=== PATIENT | female | born 1940 | race Caucasian/White ===

== ENCOUNTER 2024-10-26 17:19 | Emergency (ER) | payer MEDICARE, SELFPAY ==
[2024-10-26 17:21] VITALS: PULSE 94; RESP 16; O2SAT 98; BMI 22.4
[2024-10-26 17:22] VITALS: BP 105/64; PULSE 91; RESP 16; TEMP 37; O2SAT 98
--- NOTE | 2024-10-26 17:44 | XR_ITS ---
Examination: CT brain head without contrast. 2-D sagittal coronal reconstructions Date and time of exam:October 26, 2024 1808 hours INDICATIONS: Onset headache altered mental status today CTDI: vol (mGy):47.5 DLP: (mGycm):984 Technique: Multiple CT axial sections of the brain have been obtained, 5 mm slice thickness. Contrast has not been administered. 2-D sagittal, coronal reconstructions have been obtained Low dose protocols were performed. One or more of the following dose reduction techniques were used; automated exposure control, adjustment of the mA and/or KV according to patient size, use of iterative reconstruction technique. Findings: No significant ventricular enlargement. Intra-axial or extra-axial hemorrhage density is not seen. No mass effect or midline shift Basal cisterns are not remarkable. Fourth ventricle is midline. Cranial vault intact. Impression: Negative for acute hemorrhage, mass effect or midline shift Moderate chronic ethmoid sinusitis
--- NOTE | 2024-10-26 17:44 | EKG_ITS ---
[facility] Test Date: 2024-10-26 Pat Name: KELLY THAO Department: Room: - Gender: Female [employer]: : 1940 Requested By: Constanza Otero Order Number: [id number] Reading MD: Constanza Otero Measurements Intervals Tropic Rate: 90 P: 76 DC: 155 QRS: -27 QRSD: 96 T: 80 QT: 359 QTc: 440 Interpretive Statements SINUS RHYTHM POSSIBLE RIGHT ATRIAL ENLARGEMENT [0.25mV P-WAVE] BORDERLINE LEFT AXIS DEVIATION [QRS AXIS < -20] NONSPECIFIC T-WAVE ABNORMALITY No previous ECG available for comparison /[id number]/S0/[id number].pdf
--- NOTE | 2024-10-26 17:45 | EDNOTE_ITS ---
<Statement entered by Olive Us MD - 10/27/24 18:29> As co-signing physician, I was present and available for consult prn. I concur with the plan and care as documented by the midlevel provider. ED Headache RME/HPI General Chief Complaint: Altered Mental Status Stated Complaint: HEADACHE Time Seen by Provider: 10/26/24 17:38 Arrival date/time: 10/26/24 17:19 RME / HPI RME / HPI Narrative: 84-year-old female patient was brought in by EMS for evaluation regarding confusion. Apparently patient is from [place], it was reported as missing since yesterday, today she was found sitting inside her car, and was helped inside the establishment. Currently patient is complaining of headache. She knows her name she told me that she is from [place] but yesterday she got lost instead of going to [place] she ended up here in our town. Police is involved and we are calling CPS also. Related Data Previous Rx's ?Medication ?Instructions ?Recorded cefuroxime axetil 500 mg tablet 500 mg PO BID #14 tabs 10/26/24 Allergies Allergy/AdvReac Type Severity Reaction Status Date / Time No Known Allergies Allergy Verified 10/26/24 22:25 Review of Systems Review of Systems Narrative Review of Systems: Review of system reviewed and within normal limits except mentioned in HPI ED Exam Narrative Physical exam: VITAL SIGNS: Reviewed. GENERAL APPEARANCE: Alert and interactive, follows commands, no acute distress, HEAD AND FACE: Non-traumatic. ENT: PERRL, pink conjunctivitis, eyelid no trauma, Mucous membrane moist. NECK: Supple, nontender, no nuchal rigidity. CHEST: No tenderness, no crepitus, no paradoxical movement, no retractions. LUNGS: Clear, well ventilated, symmetric, no rales, no wheezing, no ronchi, no stridor, good breath sounds bilaterally. HEART: Regular rate, regular rhythm, no murmur, no gallops. ABDOMEN: Soft, positive bowel sounds, nondistended, no guarding, nontender, no rebound, no masses, RECTAL: Deferred. GENITAL: Deferred. NEUROLOGICAL: Gross motor function intact sensory function intact, Appropriate for age. MUSCULOSKELETAL: low back nontender, full range of motion. EXTREMITIES: Nontender, full range of motion. SKIN: Color pink, dry, no rash, no lacerations, no abrasions, no contusions. LYMPHATICS: Deferred. Course Quality Measures none Orders Category Date Time Status EKG (ED ONLY) *Do not use* NOW Care 10/26/24 17:45 Completed Diet Regular Diet 10/26/[address] head/brain wo con Stat Exams 10/26/24 17:44 Completed EKG (ED Only) Stat Exams 10/26/24 17:44 Draft CBC [CBC] Stat Lab 10/26/24 18:20 Completed CK [Creatine Kinase] Stat Lab 10/26/24 18:20 Completed CMP [Comprehensive Metabolic Panel] Stat Lab 10/26/24 18:20 Completed Drug Screen,Urine Stat Lab 10/26/24 20:42 Completed UA, C/S IF [Urinalysis, C/S if Indicated] Stat Lab 10/26/24 20:42 Completed Urine Culture Stat Lab 10/26/24 20:42 Received Sodium Chloride 0.9% 1000 ml [Ns] 1,000 ml Med 10/26/24 17:44 Discontinued IV 999 mls/hr cephALEXin [Keflex] Med 10/26/24 22:16 Once 500 mg PO X1 ONE Vital Signs Vital signs: Vital Signs Temperature 98.6 F 10/26/24 17:22 Pulse Rate 91 10/26/24 17:22 Respiratory Rate 16 10/26/24 17:22 Blood Pressure 105/64 10/26/24 17:22 Pulse Oximetry (%) 98 10/26/24 17:22 Oxygen Delivery Method Room Air 10/26/24 17:22 Headache MDM Narrative MDM Narrative:: 84-year-old female patient was brought in by EMS for evaluation regarding confusion. Apparently patient is from [place], it was reported as missing since yesterday, today she was found sitting inside her car, and was helped inside the establishment. Currently patient is complaining of headache. She knows her name she told me that she is from [place] but yesterday she got lost instead of going to [place] she ended up here in our town. Police is involved and we are calling CPS also. Patient's workup all came back unremarkable. Including CT scan of the head except for UTI Patient received Keflex in the ED. Patient was picked up by her friend from [place]. Patient data External records reviewed:: None Clinical information provided by:: patient Social determinants that could affect healthcare access:: none Patient has the following chronic illnesses:: History of dementia How is presenting disease/condition affected by chronic disease/condition?: exacerbated by Evaluation data The following diagnostics were reviewed and interpreted by me:: lab results, radiology exam(s) and EKG tracing(s) Lab and/or radiology exams considered but not ordered:: None Interpretation Summary: EKG showed normal sinus rhythm, ventricular rate of [address] segment elevation depression noted. Medications / Prescriptions Medications or Prescriptions considered but not ordered:: None Medication administrations:: Medication Administration History Cephalexin HCl (Cephalexin 250 Mg Capsule) 500 mg PO X1 ONE Stop: 10/26/24 22:17 Discontinued Medications Sodium Chloride (Ns) 1,000 mls @ 999 mls/hr IV .Q1H1M ONE Stop: 10/26/24 18:44 Last Infusion: 10/26/24 19:51 Dose: Infused Documented By: Admin: 10/26/24 18:48 Dose: 999 mls/hr Documented By: EF IV fluids, Keflex Consultations Consultation(s) initiated? (list below): No Diagnosis Differential diagnosis headache: headache and other (Confusion, history of dementia, UTI) Most likely diagnosis given after review of the tests above:: Confusion, history of dementia, UTI, altered mental status Admission Indicated Admission indicated?: not indicated Admission Request Was there a request for admission?: No Disposition Plan Disposition Plan: Discharge Discharge Attestation Discharge Attestation: The patient and all family members were given an opportunity to ask questions an d understood the discharge instructions. Discharge instructions specifically effects, indications for sooner follow up or return to the emergency department, and the expected course of current diagnosis. Patient condition: Stable Discharge Plan Plan Patient Disposition: HOME (Self Care) Discharge Disposition comment: Stable Prescriptions/Referrals Prescriptions/Med Rec: New cefuroxime axetil 500 mg tablet 500 mg PO BID Qty: 14 0RF Referrals: No Primary/Family,Physician [Primary Care Provider] - In 1 week Problem List Clinical Impression: UTI (urinary tract infection), Confusion Patient/Caregiver Discharge Instructions Discharge Activity: activity as tolerated Education Materials: Urinary Tract Infections in Women Additional Instructions: Thank you for the opportunity for serving you today. You are stable for discharged . You are advised to: Follow-up with your PCP in 1 to 2 days Return to ED for worsening of symptoms Increase oral fluids Take medication as prescribed Print Language: [place] Stand Alone Forms: Madiha Award Info., Patient Portal Info Letter
--- NOTE | 2024-10-26 18:08 | PC.CC ---
ASW was contacted by the pts next door neighbor named Steve Jones [phone] who resides at [id number] [place] [address], stated that the pt drove from [place] to [place] today and was found by innocent bystanders who found the pt at a recycling center and did not know where she was. stated he is coming from [place] now on his way to order picker the pt and take her back home to care for the pt. stated he is worried for the pt as she has not family to care for her. and his are willing to care for the pt as they have known each other for 55 years and are neighbors.
[2024-10-26 18:31] VITALS: BP 148/83; PULSE 86; RESP 20; O2SAT 98
[2024-10-26] MEDS: SODIUM CHLORIDE 0.9% 1000 ML 1,000 ML 999 ML IV (18:48)
[2024-10-26 18:53] LABS: Basophils % (Auto) 0 % (0-2.5); Eosinophils # (Auto) 0.1 Thou/mm3 (0.0-0.5); Eosinophils % (Auto) 1 % (0-10); Hematocrit 41.7 % (36.0-46.0); Hemoglobin 14.6 g/dL (12.0-16.0); Immature Granulocytes % (Auto) 0 % (0-0); Immature Granulocytes Auto 0.04 Thou/mm3 (0.00-0.00); Lymphocytes # (Auto) 0.6 Thou/mm3 (1.0-4.8); Lymphocytes % (Auto) 6 % (10-50); Mean Corpuscular Hemoglobin 29.9 pg (25.0-35.0); Mean Corpuscular Volume 86 fL (80-100); Monocytes % (Auto) 10 % (0-12); Neutrophils # (Auto) 8.2 Thou/mm3 (1.8-7.7); Neutrophils % (Auto) 83 % (37-80); Nucleated Red Blood Cell % 0 /100 WBC (0); Platelet Count 194 Thou/mm3 (140-440); RDW Standard Deviation 42.4 fL (36.4-46.3); Red Blood Count 4.88 Miln/mm3 (4.00-5.20); White Blood Count 9.9 Thou/mm3 (3.6-11.0)
[2024-10-26 19:19] LABS: Alanine Aminotransferase 18 U/L (10-49); Albumin, Serum 4.2 gm/dL (3.4-4.8); Albumin/Globulin Ratio 1.9 (1.2-2.2); Alkaline Phosphatase 136 U/L (46-116); Anion Gap 11 (7-16); Aspartate Amino Transferase 45 U/L (0-34); BUN/Creatinine Ratio 18 Ratio (12-20); Bilirubin,Total 4.9 mg/dL (0.3-1.2); Blood Urea Nitrogen 18 mg/dL (9-23); Carbon Dioxide 24.7 mMol/L (20.0-31.0); Chloride 107 mMol/L (98-107); Creatine Kinase 828 U/L (34-171); Estimated Creatinine Clearance 39.3 mL/min (>60); Globulin 2.2 gm/dL (2.3-3.5); Glucose 105 mg/dL (74-106); Osmolality,Calculated 286 (275-295); Potassium 4.1 mMol/L (3.4-5.1); Sodium 143 mMol/L (136-145); Total Protein 6.4 gm/dL (5.7-8.2); eGFR 55 See Note
[2024-10-26 21:14] LABS: Collection Type, Urine Clean Catch
[2024-10-26 21:23] LABS: Amphetamine/Methamp Scrn,U Negative (Negative); Barbiturate Screen,Urine Negative (Negative); Benzodiazepines Screen,Urine Negative (Negative); Benzoylecgonine Screen, Ur Negative (Negative); Fentanyl Screen,Urine Negative (Negative); Opiate Screen,Urine Negative (Negative); THC Screen,Urine Negative (Negative)
[2024-10-26 21:25] LABS: Bacteria,Urine 2+; Bilirubin,Urine Negative (Negative); Blood,Urine Trace (Negative); Clarity,Urine Clear (Clear/Hazy); Color,Urine Lt-Yellow (Lt Yel-Yel); Glucose, Urine Negative (Negative); Hyaline Casts,Urine < 1 /hpf (0-1); Ketones,Urine 1+ (Negative); Leukocyte Esterase,Urine Positive (Negative); Nitrite,Urine Negative (Negative); PH,Urine 6.5 (5.0-7.0); Protein,Urine Negative (Neg - Trace); RBC,Urine 12 /hpf (0-3); Specific Gravity,Urine 1.014 (1.001-1.035); Squamous Epithelial Cell,Urine 10 /hpf (0-5); Urobilinogen,Urine Negative mg/dL (0.0-1.0); WBC,Urine 31 /hpf (0-5)
[2024-10-26 21:27] LABS: Culture Indicated,Urine Yes
[2024-10-26] MEDS: cephALEXin 250 MG CAPSULE 500 MG PO (22:35)
[2024-10-26 22:43] VITALS: BP 138/55; PULSE 68; RESP 18; TEMP 36.7; O2SAT 96
== END 2024-10-26 22:44 | disposition home or self-care (01) ==
PROVIDERS: Nurse Practitioner Family; Emergency Provider Emergency Medicine
DX: N39.0 Urinary tract infection, site not specified (principal); J32.2 Chronic ethmoidal sinusitis
CPT/HCPCS: 36415; 70450; 80053; 80307; 81001; 82550; 85025; 87077; 87086; 87186; 93005; 96360; 99284; J7030; A9270